=== PATIENT | female | born 1965 | race Caucasian/White ===

== ENCOUNTER 2024-05-19 19:39 | Emergency (ER) | payer OTHER ==
[~2024-05-19] VITALS: Ht 167.6 cm; Wt 62.6 kg
[2024-05-19 19:44] VITALS: BP 174/99; PULSE 101; RESP 18; TEMP 98; O2SAT 99
[2024-05-19 21:20] VITALS: BP 152/88; PULSE 99; RESP 18; TEMP 98; O2SAT 99
== END 2024-05-19 21:20 | disposition home or self-care (01) ==
LOC: MED 19:39
DX: S93.401A Sprain of unspecified ligament of right ankle, initial encounter (principal); S83.91XA Sprain of unspecified site of right knee, initial encounter; W01.0XXA Fall on same level from slipping, tripping and stumbling without subsequent striking against object, initial encounter; Y93.89 Activity, other specified; Y92.89 Other specified places as the place of occurrence of the external cause; Y99.8 Other external cause status
CPT/HCPCS: 73564; 73610; 99284